=== PATIENT | male | born 1945 | race Caucasian/White ===

== ENCOUNTER 2017-07-17 14:38 | Emergency (ER) | payer MEDICARE, OTHER ==
--- NOTE | 2017-07-17 14:54 | EDM.PDOC ---
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 History of Present Illness: []Patient is from [facility] just traveled here for 2 days in the car. Arrived the day before yesterday and has this pain, continuing with tingling. Review of Systems: As per history of present illness and below otherwise all systems reviewed and negative. Past medical history: As per history of present illness and as reviewed below otherwise noncontributory. Surgical history: As per history of present illness and as reviewed below otherwise noncontributory. Social history: No reported history of drug or alcohol abuse. Family history: As per history of present illness and as reviewed below otherwise noncontributory. Physical exam: Alert and oriented man answering questions appropriately denies any chest pain or heart palpitations. Speaking in full sentences without any shortness of breath nontoxic in appearance. HEENT: Atraumatic, normocehpalic, pupils reactive, negative for conjunctival pallor or scleral icterus, mucous membranes moist, throat clear, neck supple, nontender, trachea midline. Lungs: Clear to auscultation, breath sounds equal bilaterally, chest non tender. Heart: S1S2, regular, negative for clicks, rubs, or JVD. Abdomen: Soft, nondistended, nontender. Negative for masses or hepatossplenmegaly. Negative for costovertebral tenderness. Pelvis: Stable nontender. Genitourinary: Deferred. Rectal: Deferred Extremities: Atraumatic, negative for cords or calf pain. Mild edema present to the right leg Neurovascular unremarkable. Neuro: Awake, alert, oriented. Cranial nerves II through XII unremarkable. Cerebellum unremarkable. Motor and sensory unremarkable throughout. Exam nonfocal. Discussed with the patient and his that he has no signs of any DVT irritation likely from the long ride. Diagnostics: [Ultrasound right leg negative for any DVT] Therapeutics: [] Impression: Right leg pain] Plan: [Discharged to home Humza sepulvedae will be ordered] Definitive disposition and diagnosis as appropriate pending reevaluation and review of above. right lower leg Pain Score (Numeric/FACES): 1 - Related Data Allergies Allergy/AdvReac Type Severity Reaction Status Date / Time No Known Allergies Allergy Verified 07/17/17 14:49 Home Meds: Home Meds Lisinopril 10 mg PO DAILY 07/17/17 [History] Metoprolol Tartrate 1 tab PO DAILY 07/17/17 [History] Warfarin Sodium [Coumadin] 6 mg PO DAILY 07/17/17 [History] atorvaSTATin [Lipitor] 1 tab PO DAILY 07/17/17 [History] Review of Systems - Review of Systems Review Of Systems: ROS reveals no pertinent complaints other than HPI. ED EXAM, GENERAL - Physical Exam Exam: See Below (see dictation) Course - Vital Signs Last Recorded V/S: Last Vital Signs Temp 36.4 C 07/17/17 14:51 Pulse 60 07/17/17 14:51 Resp 19 07/17/17 14:51 BP 164/70 H 07/17/17 14:51 Pulse Ox 96 07/17/17 14:51 - Orders/Labs/Meds Orders: Active Orders 24 hr Category Date Time Status Venous Doppler Lwr Ext Rt [US] Stat Exams 07/17/17 14:54 Taken Labs: Laboratory Tests 07/17/17 07/17/17 07/17/17 Range/Units 15:00 15:00 15:00 WBC 7.20 (4.0-11.0) K/uL RBC 4.56 (4.50-5.90) M/uL Hgb 14.2 (13.0-17.0) g/dL Hct 41.9 (38.0-50.0) % MCV 91.9 (80.0-98.0) fL MCH 31.1 (27.0-32.0) pg MCHC 33.9 (31.0-37.0) g/dL RDW Std Deviation 46.2 (28.0-62.0) fl RDW Coeff of Kar 14 (11.0-15.0) % Plt Count 163 (150-400) K/uL MPV 9.50 (7.40-12.00) fL Neut % (Auto) 71.6 (48.0-80.0) % Lymph % (Auto) 17.6 (16.0-40.0) % Hubbard % (Auto) 6.9 (0.0-15.0) % Eos % (Auto) 3.3 (0.0-7.0) % Baso % (Auto) 0.6 (0.0-1.5) % Neut # (Auto) 5.2 (1.4-5.7) K/uL Lymph # (Auto) 1.3 (0.6-2.4) K/uL Hubbard # (Auto) 0.5 (0.0-0.8) K/uL Eos # (Auto) 0.2 (0.0-0.7) K/uL Baso # (Auto) 0.0 (0.0-0.1) K/uL Nucleated RBC % 0.0 /100WBC Nucleated RBCs # 0 K/uL INR 3.30 H (0.86-1.11) Sodium 140 (136-146) mmol/L Potassium 4.5 (3.5-5.1) mmol/L Chloride 110 (98-110) mmol/L Carbon Dioxide 21 (21-31) mmol/L BUN 23 (6.0-23.0) mg/dL Creatinine 1.1 (0.6-1.5) mg/dL Est Cr Clr Drug Dosing 68.60 mL/min Estimated GFR (MDRD) > 60.0 ml/min Glucose 173 H (60-110) mg/dL Calcium 9.1 (8.8-10.8) mg/dL Total Bilirubin 0.8 (0.1-1.5) mg/dL AST 17 (5-40) IU/L ALT 18 (8-54) IU/L Alkaline Phosphatase 157 H (40-150) Total Protein 6.6 (6.0-8.0) g/dL Albumin 3.5 (3.4-4.8) g/dL Globulin 3.1 (2.0-3.5) g/dL Albumin/Globulin Ratio 1.1 L (1.3-2.8) Departure - Departure Time of Disposition: 16:42 Disposition: Home, Self-Care 01 Condition: Good Clinical Impression: Leg pain, right - Discharge Information Referrals: PCP,None [Primary Care Provider] - Forms: ED Department Discharge Additional Instructions: The following information is given to patients seen in the emergency department who are being discharged to home. This information is to outline your options for follow-up care. We provide all patients seen in our emergency department with a follow-up referral. The need for follow-up, as well as the timing and circumstances, are variable depending upon the specifics of your emergency department visit. If you don't have a primary care physician on staff, we will provide you with a referral. We always advise you to contact your personal physician following an emergency department visit to inform them of the circumstance of the visit and for follow-up with them and/or the need for any referrals to a consulting specialist. The emergency department will also refer you to a specialist when appropriate. This referral assures that you have the opportunity for followup care with a specialist. All of these measure are taken in an effort to provide you with optimal care, which includes your followup. Under all circumstances we always encourage you to contact your private physician who remains a resource for coordinating your care. When calling for followup care, please make the office aware that this follow-up is from your recent emergency room visit. If for any reason you are refused follow-up, please contact the [facility] emergency department at and asked to speak to the emergency department charge nurse. Prescription has been written for HUMZA cantrell would prefer you get to the thigh- high Keep WHILE TRAVELING See your primary care provider when you return home - My Orders Last 24 Hours: My Active Orders 07/17/17 14:54 Venous Doppler Lwr Ext Rt [US] Stat - Assessment/Plan Last 24 Hours: My Active Orders 07/17/17 14:54 Venous Doppler Lwr Ext Rt [US] Stat
[2017-07-17 15:27] LABS: CHLORIDE,CL 110 mmol/L (98-110); SODIUM,NA 140 mmol/L (136-146)
[2017-07-17 16:37] VITALS: BP 140/67
--- NOTE | 2017-07-19 10:32 | US ---
EXAM DATE: 07/17/17 PATIENT'S AGE: 72 Patient: EARNEST GARCÍA Facility: [place], [place] Site . Site : 1945 Study: US Extremity Right [id number] 4:12:30 PM Ordering Physician: Doctor Bertrand Final Report: INDICATION: Right lower extremity pain. Technique: Right lower extremity venous ultrasound using grayscale and spectral Doppler analysis. Findings: Normal venous flow, augmentation, and compression are identified in the common femoral, profunda femoral, superficial femoral, popliteal, and proximal trifurcation veins. The greater saphenous femoral junction is patent. Impression: Right lower extremity venous ultrasound is negative for deep venous thrombosis. Dictated by Leticia Smith MD @ Jul 17 2017 4:25PM (Electronic Signature) Report Signed by Proxy. BAILEY
== END 2017-07-17 16:53 | disposition home or self-care (01) ==
LOC: MW.ED 14:38
DX: M79.661 Pain in right lower leg (principal); Z79.899 Other long term (current) drug therapy; Z79.01 Long term (current) use of anticoagulants
CPT/HCPCS: 36415; 80053; 85025; 85610; 93971-26-RT; 93971-RT; 99282; 99284-25